=== PATIENT | female | born 2000 | race Caucasian/White ===

== ENCOUNTER 2025-04-15 22:50 | Emergency (ER) | payer OTHER ==
[~2025-04-15] VITALS: Ht 162.6 cm; Wt 53.6 kg
[2025-04-15 22:58] VITALS: PULSE 99; RESP 18; O2SAT 100
[2025-04-15 23:03] VITALS: BP 110/86; TEMP 36.7; O2SAT 99
== END 2025-04-16 01:05 | disposition home or self-care (01) ==
LOC: ER 22:50
DX: S01.01XA Laceration without foreign body of scalp, initial encounter (principal); R51.9 Headache, unspecified; Y08.89XA Assault by other specified means, initial encounter; Y93.89 Activity, other specified; Y92.89 Other specified places as the place of occurrence of the external cause; Y99.8 Other external cause status; Z79.899 Other long term (current) drug therapy
CPT/HCPCS: 12001; 99284; 70450; Z7610